=== PATIENT | male | born 1940 | race Caucasian/White ===

== ENCOUNTER → 2021-05-28 | Outpatient (CLI) | payer MEDICARE ==
[~2021-05-28] MED LIST: METOPROLOL 1 MG/ML, 5ML ONE; REGADENOSON 0.4 MG/5 ML SYRINGE ONE
== END | disposition home or self-care (01) ==
LOC: CVU 06:40
PROVIDERS: ATTEND Internal Medicine Cardiovascular Disease
DX: I08.8 Other rheumatic multiple valve diseases (principal); I10 Essential (primary) hypertension; R94.31 Abnormal electrocardiogram [ECG] [EKG]
CPT/HCPCS: 78452; 93017; 93306; A9502; J2785